=== PATIENT | male | born 2000 ===

== ENCOUNTER → 2018-09-25 | Outpatient (CLI) | payer OTHER | END | disposition home or self-care (01) | LOC: PLD 11:20 → LAB SHORT 11:20 | DX: L57.0 Actinic keratosis (principal) | CPT/HCPCS: 88305; 88312 ==

== ENCOUNTER 2019-05-09 00:16 | Emergency (ER) | payer SELFPAY ==
[~2019-05-09] VITALS: Ht 172.7 cm; Wt 70.3 kg
== END 2019-05-09 01:51 | disposition left against medical advice (07) ==
LOC: ER 00:16
DX: Z53.21 Procedure and treatment not carried out due to patient leaving prior to being seen by health care provider (principal)